=== PATIENT | female | born 2000 | race Caucasian/White ===

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

== ENCOUNTER 2022-09-16 03:03 | Emergency (ER) | payer OTHER ==
[2022-09-16 03:11] VITALS: BP 136/81; PULSE 68; RESP 16; TEMP 97.8
[2022-09-16] MEDS ORDERED: KETOROLAC 15 MG/ML 1 ML VIAL IVP STA (03:14)
[2022-09-16] MEDS ORDERED: ONDANSETRON 4 MG/2 ML VIAL IVP STA (03:14)
--- NOTE | 2022-09-16 03:15 | ED ---
Chest Pain HPI - General Chief Complaint: Chest Pain Stated Complaint: Chest Pain Time Seen by Provider: 09/16/22 03:09 Source: patient, RN notes reviewed Mode of arrival: EMS Limitations: no limitations - History of Present Illness Initial Comments: This is a 22-year-old female who presents to the emergency department for chest pain. Patient states that over the last week, she has had a cough and has overall felt unwell. Over the last 2 days she has had increasing chest pain with shortness of breath. Around midnight, the chest pain started to increase, prompting her to call EMS. Describes the pain as being in the entire chest and feeling heavy. Reports a family cardiac history, but is unsure what it is. Denies any personal cardiac history. She has minor associated nausea. Denies any history of similar symptoms in the past. Denies any fevers, chills, sore throat, cough, palpitations, abdominal pain, vomiting, diarrhea, back pain, or headaches. MD Complaint: chest pain Onset/Timin -: days(s) Pain Location: substernal Pain Radiation: none Quality: tightness - Related Data Home Medications Medication Instructions Recorded Confirmed Multivitamin [Multivitamins Adult 1 tab PO DAILY 03/26/18 03/26/18 Gummies] Omeprazole [PriLOSEC] 20 mg PO QAM 03/26/18 03/26/18 Previous Rx's Medication Instructions Recorded Cephalexin [Keflex] 500 mg PO Q6HR #28 cap 05/26/18 Fluconazole [Diflucan] 150 mg PO ONCE #3 tab 05/26/18 Mupirocin 2% Oint [Bactroban 2% 1 applic TOPICAL TID #60 gm 05/26/18 Oint] Nystatin 100,000 Unit/gm Powd 1 applic TOPICAL BID #60 gm 05/26/18 [Mycostatin Powder] Ondansetron [Zofran ODT] 4 mg PO Q8HR PRN #10 tab 05/07/19 Albuterol Sulfate [Albuterol 1 puff PO Q4-6H PRN #8.5 gm 09/16/22 Sulfate Hfa] dexAMETHasone [Decadron] 6 mg PO DAILY 4 Days #4 tablet 09/16/22 Allergies Allergy/AdvReac Type Severity Reaction Status Date / Time bee pollen Allergy Rash/Hives Verified 12/18/19 13:23 cetirizine [From Zyrtec] Allergy Rash/Hives Verified 12/18/19 13:23 cucumber Allergy Rash/Hives Verified 12/18/19 13:23 fluticasone [From Flonase] Allergy Rash/Hives Verified 12/18/19 13:23 lemon eucalyptus Allergy Rash/Hives Verified 12/18/19 13:23 [From Mosquito Eliminator] Review of Systems ROS Statement: Those systems with pertinent positive or pertinent negative responses have been documented in the HPI. ROS Other: All systems not noted in ROS Statement are negative. Past Medical History Past Medical History: No Reported History Additional Past Medical History / Comment(s): IBS, Chrons dx. CSID History of Any Multi-Drug Resistant Organisms: None Reported Past Surgical History: Cholecystectomy Past Psychological History: Anxiety Smoking Status: Never smoker Past Alcohol Use History: None Reported Past Drug Use History: None Reported General Exam Limitations: no limitations General appearance: alert, in no apparent distress Head exam: Present: atraumatic, normocephalic, normal inspection Respiratory exam: Present: normal lung sounds bilaterally, chest wall tenderness. Absent: respiratory distress, wheezes, rales, rhonchi, stridor Cardiovascular Exam: Present: regular rate, normal rhythm, normal heart sounds. Absent: systolic murmur, diastolic murmur, rubs, gallop, clicks Neurological exam: Present: alert, oriented X3, CN II-XII intact Psychiatric exam: Present: normal affect, normal mood Skin exam: Present: warm, dry, intact, normal color. Absent: rash Course Vital Signs 09/16/22 03:05 Temperature 97.8 F Pulse Rate 68 Respiratory 16 Rate Blood Pressure 136/81 O2 Sat by Pulse 99 Oximetry Chest Pain MDM - MDM This is a 22-year-old female who presents to the emergency department for chest pain and shortness of breath. Was pt. sent in by a medical professional or institution? @ -No Did you speak to anyone other than the patient for history? @ -EMS Did you review nursing and triage notes? @ -Yes, and I agree, it is accurate with regards to the patient's symptoms. Were old charts reviewed? @ -No Differential Diagnosis? @ -Differential Chest Pain: Stable Angina, Unstable Angina, STEMI, NSTEMI Aortic Dissection, Pneumothorax, Musculoskeletal, Esophageal Spasm GERD, Cholecystitis, Pancreatitis, Zoster, this is not meant to be an all-inclusive list. -Differential Dyspnea: Coronary syndrome, arrhythmia, tamponade, asthma, COPD, pulmonary embolism, pneumonia, pneumothorax, pulmonary effusion, anaphylaxis, diabetic ketoacidosis, flailed chest, pulmonary contusion, diaphragmatic rupture, anemia, neuromuscular, this is not meant to be an all-inclusive list. EKG interpreted by me (3pts min.)? @ -Sinus rhythm. Ventricular rate 78 beats per minute, MN interval 174 ms, QRS duration 86 ms, QTC 397 ms. X-rays interpreted by me (1pt min.)? @ -Chest x-ray obtained, my interpretation identifies no localized consolidations or infiltrates. What testing was considered but not performed? (CT, X-rays, U/S, labs)? Why? @ -None What meds were considered but not given? Why? @ -None Did you discuss the management of the patient with other professionals? @ -No Did you reconcile home meds? @ -No Was smoking cessation discussed for >3mins.? @ -No Was critical care preformed (if so, how long)? @ -No Were there social determinants of health that impacted care today? How? (Homelessness, low income, unemployed, alcoholism, drug addiction, transportation, low edu. Level, literacy, decrease access to med. care, shelter, rehab)? @ -No Was there de-escalation of care discussed even if they declined? (Discuss DNR or withdrawal of care, Hospice)? @ -No What co-morbidities impacted this encounter? (DM, HTN, Smoking, COPD, CAD, Cancer, CVA, Hep., AIDS, mental health diagnosis, sleep apnea, morbid obesity)? @ -Morbid obesity Was patient admitted / discharged? @ -Discharged. Lab work obtained and found to be nonactionable, including a negative troponin and negative d-dimer. Chest x-ray reveals no acute process. Patient negative for COVID-19. Toradol, IV fluids, and Zofran administered for symptoms, which only offered minor improvement. She was then given a dose of Decadron and Valium. I did offer a breathing treatment, however the patient declined. Low suspicion for ACS. This may be related to pleurisy secondary to COVID-19 infection. Rx for additional 4 day course of Decadron and albuterol inhaler provided with dosing instructions reviewed. She is otherwise advised to get plenty of rest and drink plenty of fluids. Undiagnosed new problem with uncertain prognosis? @ -None Drug Therapy requiring intensive monitoring for toxicity (Heparin, Nitro, Insulin, Cardizem)? @ -None Were any procedures done? @ -None Diagnosis/symptom? @ -COVID-19, Atypical chest pain Acute, or Chronic, or Acute on Chronic? @ -Acute Uncomplicated (without systemic symptoms) or Complicated (systemic symptoms)? @ -Uncomplicated Side effects of treatment? @ -None Exacerbation, Progression, or Severe Exacerbation] @ -Not applicable Poses a threat to life or bodily function? @ -No Return precautions reviewed in depth, the patient is instructed to return to the emergency department with any new, worsening, or concerning symptoms. Patient verbalized understanding. This case was discussed in detail with the attending ED physician, Dr. Magaña. Presentation, findings, and treatment plan discussed in detail as well. Disposition Clinical Impression: Chest pain, COVID-19 Disposition: HOME SELF-CARE Instructions (If sedation given, give patient instructions): Chest Pain (ED), COVID-19 (Coronavirus Disease 2019) (ED), How to Recover from COVID-19 at Home (ED) Additional Instructions: Return to the emergency department with any new, worsening, or concerning symptoms. Take the Decadron daily for the next 4 days. You can use the albuterol inhaler every 4-6 hours as needed for shortness of breath. Follow up with your primary care provider in 1-2 days. Prescriptions: Albuterol Sulfate [Albuterol Sulfate Hfa] 1 puff PO Q4-6H PRN #8.5 gm PRN Reason: Shortness Of Breath dexAMETHasone [Decadron] 6 mg PO DAILY 4 Days #4 tablet Is patient prescribed a controlled substance at d/c from ED?: No Referrals: Perfecto Nolasco MD [STAFF PHYSICIAN] - 1-2 days
[2022-09-16 03:31] LABS: Basophils % (A) 0 %; Eosinophils # (A) 0.4 k/uL (0-0.7); Eosinophils % (A) 5 %; HCT 37.3 % (34.0-46.0); HGB 12.5 gm/dL (11.4-16.0); Lymphocytes # (A) 2.5 k/uL (1.0-4.8); Lymphocytes % (A) 32 %; MCH 28.4 pg (25.0-35.0); MCHC 33.5 g/dL (31.0-37.0); MCV 84.6 fL (80.0-100.0); Mean Platelet Volume 7.2; Monocytes # (A) 0.4 k/uL (0-1.0); Monocytes % (A) 5 %; Neutrophils # (A) 4.3 k/uL (1.3-7.7); Neutrophils % (A) 55 %; Platelet Count 385 k/uL (150-450); RBC 4.41 m/uL (3.80-5.40); RDW 13.3 % (11.5-15.5); WBC 7.8 k/uL (4.0-11.0)
[2022-09-16 03:47] LABS: ALT 26 U/L (4-34); AST 22 U/L (14-36); African American GFR (CKD) >90 (>60 ml/min/1.73 sqM); Alkaline Phosphatase 85 U/L (38-126); Anion Gap 8 mmol/L; Blood Urea Nitrogen 10 mg/dL (7-17); Calcium 8.8 mg/dL (8.4-10.2); Carbon Dioxide 21 mmol/L (22-30); Chloride 108 mmol/L (98-107); Glucose 99 mg/dL (74-99); Non-African American GFR(CKD) >90 (>60 ml/min/1.73 sqM); Potassium 4.2 mmol/L (3.5-5.1); Sodium 137 mmol/L (137-145); Total Bilirubin 0.2 mg/dL (0.2-1.3); Total Protein 6.6 g/dL (6.3-8.2)
[2022-09-16 03:49] LABS: INR 0.9 (<1.2); Partial Thromboplastin Time 23.3 sec (22.0-30.0); Prothrombin Time 9.9 sec (9.0-12.0)
[2022-09-16 03:49] LABS: Appearance,Urine Clear (Clear); Bilirubin,Urine Negative (Negative); Blood,Urine Negative (Negative); Color,Urine Yellow; Glucose,Urine (UA) Negative (Negative); Ketones,Urine Negative (Negative); Leukocyte Esterase,Urine Negative (Negative); Nitrite,Urine Negative (Negative); Protein,Urine Negative (Negative); Specific Gravity,Urine 1.024 (1.001-1.035); Urobilinogen,Urine <2.0 mg/dL (<2.0)
--- NOTE | 2022-09-16 04:04 | XR ---
EXAMINATION TYPE: XR chest 2V DATE OF EXAM: 09/16/2022 COMPARISON: NONE HISTORY: Cough TECHNIQUE: 2 view FINDINGS: Heart and mediastinum are normal. Lungs are clear. Diaphragm is normal. Bony thorax is norm al. There are chest leads IMPRESSION: Normal chest.
[2022-09-16] MEDS ORDERED: DEXAMETHASONE SOD PHOSPHATE 10 MG/ML 1 ML VIAL IVP STA (04:11)
== END 2022-09-16 05:25 | disposition home or self-care (01) ==
LOC: EC 03:03
DX: U07.1 COVID-19 (principal); F41.9 Anxiety disorder, unspecified; Z91.030 Bee allergy status; Z91.018 Allergy to other foods; Z88.8 Allergy status to other drugs, medicaments and biological substances
CPT/HCPCS: 36415; 93005; 85379; 80053; 83735; 84484; 85025; 85610; 85730; 81003; 87636; 71046; 99285; 96374; 96375 ×3; J1100; J3360; J2405; J1885

== ENCOUNTER 2022-11-05 20:25 | Emergency (ER) | payer OTHER ==
[2022-11-05 21:12] VITALS: TEMP 98.1
--- NOTE | 2022-11-05 22:03 | ED ---
General Adult HPI - General Chief complaint: Neck Pain/Injury Stated complaint: RT SHOULDER PAIN Time Seen by Provider: 11/05/22 21:48 Source: patient, RN notes reviewed Mode of arrival: ambulatory Limitations: no limitations - History of Present Illness Initial comments: 22-year-old female presents to the emergency department with chief complaint of right shoulder pain. She states that it started about a week ago and has progressively gotten worse. She states she has not taken anything at home for pain. The pain is worse with overhead motions. She states it feels like a pulling pain. Denies recent injury. Denies fever, chills. Denies swelling and redness to the area. Denies numbness, tingling. - Related Data Home Medications Medication Instructions Recorded Confirmed Multivitamin [Multivitamins Adult 1 tab PO DAILY 03/26/18 03/26/18 Gummies] Omeprazole [PriLOSEC] 20 mg PO QAM 03/26/18 03/26/18 Previous Rx's Medication Instructions Recorded Cephalexin [Keflex] 500 mg PO Q6HR #28 cap 05/26/18 Fluconazole [Diflucan] 150 mg PO ONCE #3 tab 05/26/18 Mupirocin 2% Oint [Bactroban 2% 1 applic TOPICAL TID #60 gm 05/26/18 Oint] Nystatin 100,000 Unit/gm Powd 1 applic TOPICAL BID #60 gm 05/26/18 [Mycostatin Powder] Ondansetron [Zofran ODT] 4 mg PO Q8HR PRN #10 tab 05/07/19 Albuterol Sulfate [Albuterol 1 puff PO Q4-6H PRN #8.5 gm 09/16/22 Sulfate Hfa] dexAMETHasone [Decadron] 6 mg PO DAILY 4 Days #4 tablet 09/16/22 Cyclobenzaprine [Flexeril] 5 mg PO TID PRN #15 tablet 11/05/22 Allergies Allergy/AdvReac Type Severity Reaction Status Date / Time bee pollen Allergy Rash/Hives Verified 11/05/22 21:10 cetirizine [From Zyrtec] Allergy Rash/Hives Verified 11/05/22 21:10 cucumber Allergy Rash/Hives Verified 11/05/22 21:10 fluticasone [From Flonase] Allergy Rash/Hives Verified 11/05/22 21:10 lemon eucalyptus Allergy Rash/Hives Verified 11/05/22 21:10 [From Mosquito Eliminator] Penicillins Allergy Unknown Verified 11/05/22 21:10 Review of Systems ROS Statement: Those systems with pertinent positive or pertinent negative responses have been documented in the HPI. ROS Other: All systems not noted in ROS Statement are negative. Past Medical History Past Medical History: No Reported History Additional Past Medical History / Comment(s): IBS, Chrons dx. CSID History of Any Multi-Drug Resistant Organisms: None Reported Past Surgical History: Cholecystectomy Past Psychological History: Anxiety Smoking Status: Never smoker Past Alcohol Use History: None Reported Past Drug Use History: None Reported General Exam Limitations: no limitations General appearance: alert, in no apparent distress Head exam: Present: atraumatic, normocephalic, normal inspection Eye exam: Present: normal appearance ENT exam: Present: normal exam Neck exam: Present: normal inspection Respiratory exam: Present: normal lung sounds bilaterally. Absent: respiratory distress, wheezes, rales, rhonchi, stridor Cardiovascular Exam: Present: normal rhythm, tachycardia Extremities exam: Present: tenderness (TTP over the right shoulder), normal capillary refill, other (radial pulses 2+, ). Absent: full ROM (mild decrease rom of right shoulder, passive rom intact) Back exam: Present: normal inspection Neurological exam: Present: alert, oriented X3 Psychiatric exam: Present: normal affect, normal mood Skin exam: Present: warm, dry, intact, normal color. Absent: rash Course Vital Signs 11/05/22 21:10 Temperature 98.1 F Pulse Rate 109 H Respiratory 18 Rate Blood Pressure 150/90 O2 Sat by Pulse 98 Oximetry Medical Decision Making - Medical Decision Making Was pt. sent in by a medical professional or institution (, PA, COSTUME DESIGNER, urgent care, hospital, or snf...) When possible be specific @ -No Did you speak to anyone other than the patient for history (EMS, parent, family, police, friend...)? What history was obtained from this source @ -No Did you review nursing and triage notes (agree or disagree)? Why? @ -I reviewed and agree with nursing and triage notes Were old charts reviewed (outside hosp., previous admission, EMS record, old EKG, old radiological studies, urgent care reports/EKG's, snf records)? Report findings @ -No old charts were reviewed Differential Diagnosis (chest pain, altered mental status, abdominal pain women, abdominal pain men, vaginal bleeding, weakness, fever, dyspnea, syncope, headache, dizziness, GI bleed, back pain, seizure, CVA, palpatations, mental health, musculoskeletal)? @ -Differential Musculoskeletal Muscular strain, contusion, ligament sprain, fracture, arthritis, septic arthritis, bursitis, cellulitis, muscle spasm, nerve compression, DVT, arterial occlusion, herpes zoster, electrolyte abnormality, tumor.... This is not meant to be in all inclusive list EKG interpreted by me (3pts min.). @ -None X-rays interpreted by me (1pt min.). @ -XR of right shoulder interpreted by me showed no acute fracture or dislocation CT interpreted by me (1pt min.). @ -None done U/S interpreted by me (1pt. min.). @ -None done What testing was considered but not performed or refused? (CT, X-rays, U/S, labs)? Why? @ -None What meds were considered but not given or refused? Why? @ -Pain medication was considered but patient did not want anything at this time. Did you discuss the management of the patient with other professionals (professionals i.e. , PA, COSTUME DESIGNER, lab, RT, psych nurse, social work job titles, intellectual property lawyer, teacher, landcare officer, case technician)? Give summary @ -No Was smoking cessation discussed for >3mins.? @ -No Was critical care preformed (if so, how long)? @ -No Were there social determinants of health that impacted care today? How? (Homelessness, low income, unemployed, alcoholism, drug addiction, transportation, low edu. Level, literacy, decrease access to med. care, longterm, rehab)? @ -No Was there de-escalation of care discussed even if they declined (Discuss DNR or withdrawal of care, Hospice)? DNR status @ -No What co-morbidities impacted this encounter? (DM, HTN, Smoking, COPD, CAD, Cancer, CVA, ARF, Chemo, Hep., AIDS, mental health diagnosis, sleep apnea, morbid obesity)? @ -None Was patient admitted / discharged? Hospital course, mention meds given and route, prescriptions, significant lab abnormalities, going to OR and other pertinent info. @ -Discharged. Patient presented to the emergency department with right shoulder pain x7 days. Patient states that it is progressively getting worse. She has not taken anything at home for pain. XR right shoulder showed Patient did not want pain medication in the emergency department. Prescription sent for Flexeril 3 days. Patient advised not to operate heavy machinery, drive while on the medication. Patient advised to also alternate Tylenol and Motrin as needed for pain. Patient discharged in stable condition. Case discussed with my attending, Dr. Hammonds. Undiagnosed new problem with uncertain prognosis? @ -No Drug Therapy requiring intensive monitoring for toxicity (Heparin, Nitro, Insulin, Cardizem)? @ -No Were any procedures done? @ -No Diagnosis/symptom? @ -trapezius strain Acute, or Chronic, or Acute on Chronic? @ -acute Uncomplicated (without systemic symptoms) or Complicated (systemic symptoms)? @ -uncomplicated Side effects of treatment? @ -No Exacerbation, Progression, or Severe Exacerbation? @ -No Poses a threat to life or bodily function? How? (Chest pain, [place], [place], pneumonia, PE, COPD, DKA, ARF, appy, cholecystitis, CVA, Diverticulitis, Homicidal, Suicidal, threat to staff... and all critical care pts) @ -No Disposition Clinical Impression: Trapezius muscle strain Disposition: HOME SELF-CARE Condition: Stable Instructions (If sedation given, give patient instructions): Muscle Strain (ED) Additional Instructions: Please return to the Emergency Department if symptoms worsen or any other concerns. Prescriptions: Cyclobenzaprine [Flexeril] 5 mg PO TID PRN #15 tablet PRN Reason: Muscle Spasm Is patient prescribed a controlled substance at d/c from ED?: No Referrals: None,Stated [Primary Care Provider] - 1-2 days Time of Disposition: 22:47
--- NOTE | 2022-11-05 22:34 | XR ---
EXAMINATION TYPE: XR shoulder complete RT DATE OF EXAM: 11/05/2022 CLINICAL HISTORY: Neck pain into right shoulder. TECHNIQUE: Three views of the right shoulder are obtained. COMPARISON: None. FINDINGS: There is no acute fracture/dislocation evident in the right shoulder. The acromioclavicul ar and glenohumeral joint spaces appear within normal limits. The visualized ribs are intact and unr emarkable. IMPRESSION: As above.
[2022-11-05 23:38] VITALS: BP 132/68; PULSE 89; RESP 16
== END 2022-11-05 23:00 | disposition home or self-care (01) ==
LOC: EC 20:25
DX: S29.012A Strain of muscle and tendon of back wall of thorax, initial encounter (principal); F41.9 Anxiety disorder, unspecified; Z91.030 Bee allergy status; Z91.018 Allergy to other foods; Z88.0 Allergy status to penicillin; Z91.048 Other nonmedicinal substance allergy status; Z79.899 Other long term (current) drug therapy; X58.XXXA Exposure to other specified factors, initial encounter
CPT/HCPCS: 99283

== ENCOUNTER → 2024-05-12 | Outpatient (CLI) | payer OTHER ==
--- NOTE | 2024-05-12 08:44 | US ---
EXAMINATION TYPE: US abdomen complete DATE OF EXAM: 05/12/2024 COMPARISON: 12/18/19 CLINICAL INDICATION: Female, 23 years old with history of R10.13 EPI PAIN; Generalized abdominal pain x a couple months TECHNIQUE: Grayscale and color Doppler imaging of the abdomen was performed. FINDINGS: EXAM MEASUREMENTS: Liver Length: 15.4 cm Gallbladder Wall: 0.22 cm CBD: 0.29 cm, color Doppler imaging was utilized to isolate the common bile duct for measurement. Spleen: 10.2 cm Right Kidney: 9.4 x 6.5 x 4.2 cm Left Kidney: 10.7 x 6.0 x 5.2 cm MOBILE APPLICATION TESTER NOTES: Slightly limited due to body habitus Pancreas: wnl Liver: heterogeneous. Hypoechoic area seen adjacent to GB measuring 3.5 x 3.2 x 1.4cm Gallbladder: wnl Evidence for sonographic Zelaya's sign: No CBD: wnl Spleen: wnl Right Kidney: wnl Left Kidney: wnl Upper IVC: obscured by bowel gas Abd Aorta: parts seen appear wnl The liver is homogenous in echotexture with relative sparing of the gallbladder fossa. The intrahepa tic portion of the IVC and proximal abdominal aorta are within normal limits. There is no evidence o f cholelithiasis. Common bile duct is unremarkable. The visualized portions of the pancreas are frankie ogenous. The spleen is unremarkable. Kidneys are symmetric and free of hydronephrosis. No renal le sions are seen. IMPRESSION: 1. Hepatic steatosis with focal fatty sparing. 2. No evidence for acute process. [facility], , 05/12/2024 8:42 AM
== END | disposition home or self-care (01) ==
LOC: RADUSWWP 08:02
PROVIDERS: ATTEND Family Medicine
DX: K76.0 Fatty (change of) liver, not elsewhere classified (principal); R10.13 Epigastric pain
CPT/HCPCS: 76700

== ENCOUNTER 2024-06-12 21:13 | Emergency (ER) | payer OTHER ==
[2024-06-12 21:20] VITALS: RESP 18; TEMP 98.3
--- NOTE | 2024-06-12 21:21 | ED ---
ENT HPI - General Chief complaint: ENT Stated complaint: Left ear swelling Time Seen by Provider: 06/12/24 21:20 Source: patient, RN notes reviewed Mode of arrival: ambulatory - History of Present Illness Initial comments: This is a 23-year-old female presenting to the emergency department chief complaint of left ear pain. She states that over the past week she has had worsening left ear pain over the past few days she has had decrease in hearing acuity of the left ear. She is evaluated yesterday at urgent care where she was prescribed antibiotic drops. States that today the pain continued to worsen however, states that she has not attempted take any medications to alleviate her symptoms. She denies discharge from the ear, mastoid tenderness, fevers, chills, cough, rhinorrhea, congestion. No other acute complaints at this time. - Related Data Home Medications Medication Instructions Recorded Confirmed Multivitamin [Multivitamins Adult 1 tab PO DAILY 03/26/18 03/26/18 Gummies] Omeprazole [PriLOSEC] 20 mg PO QAM 03/26/18 03/26/18 Previous Rx's Medication Instructions Recorded Cephalexin [Keflex] 500 mg PO Q6HR #28 cap 05/26/18 Fluconazole [Diflucan] 150 mg PO ONCE #3 tab 05/26/18 Mupirocin 2% Oint [Bactroban 2% 1 applic TOPICAL TID #60 gm 05/26/18 Oint] Nystatin 100,000 Unit/gm Powd 1 applic TOPICAL BID #60 gm 05/26/18 [Mycostatin Powder] Ondansetron [Zofran ODT] 4 mg PO Q8HR PRN #10 tab 05/07/19 Albuterol Sulfate [Albuterol 1 puff PO Q4-6H PRN #8.5 gm 09/16/22 Sulfate Hfa] dexAMETHasone [Decadron] 6 mg PO DAILY 4 Days #4 tablet 09/16/22 Cyclobenzaprine [Flexeril] 5 mg PO TID PRN #15 tablet 11/05/22 Ibuprofen [Motrin] 800 mg PO Q6HR #30 tab 06/12/24 Allergies Allergy/AdvReac Type Severity Reaction Status Date / Time bee pollen Allergy Rash/Hives Verified 11/05/22 21:10 cetirizine [From Zyrtec] Allergy Rash/Hives Verified 11/05/22 21:10 cucumber Allergy Rash/Hives Verified 11/05/22 21:10 fluticasone [From Flonase] Allergy Rash/Hives Verified 11/05/22 21:10 lemon eucalyptus Allergy Rash/Hives Verified 11/05/22 21:10 [From Mosquito Eliminator] Penicillins Allergy Unknown Verified 11/05/22 21:10 Review of Systems ROS Statement: Those systems with pertinent positive or pertinent negative responses have been documented in the HPI. ROS Other: All systems not noted in ROS Statement are negative. Past Medical History Past Medical History: No Reported History Additional Past Medical History / Comment(s): IBS, Chrons dx. CSID History of Any Multi-Drug Resistant Organisms: None Reported Past Surgical History: Cholecystectomy Past Psychological History: Anxiety Smoking Status: Never smoker Past Alcohol Use History: None Reported Past Drug Use History: None Reported General Exam General appearance: alert, in no apparent distress Expanded TM/Canal exam: Perforation: Left TM (partial ), Canal Tenderness: Left TM Neck exam: Present: normal inspection. Absent: tenderness, meningismus, lymphadenopathy Respiratory exam: Present: normal lung sounds bilaterally. Absent: respiratory distress, wheezes, rales, rhonchi, stridor Cardiovascular Exam: Present: regular rate, normal rhythm, normal heart sounds. Absent: systolic murmur, diastolic murmur, rubs, gallop, clicks GI/Abdominal exam: Present: soft, normal bowel sounds. Absent: distended, tenderness, guarding, rebound, rigid Skin exam: Present: warm, dry, intact, normal color. Absent: rash Course Vital Signs 06/12/24 21:16 Temperature 98.3 F Pulse Rate 122 H Respiratory 18 Rate Blood Pressure 146/94 O2 Sat by Pulse 99 Oximetry Medical Decision Making - Medical Decision Making Was pt. sent in by a medical professional or institution (, PA, ROLL RECLAIMER, urgent care, hospital, or long-term...) When possible be specific @ -No Did you speak to anyone other than the patient for history (EMS, parent, family, police, friend...)? What history was obtained from this source @ -No Did you review nursing and triage notes (agree or disagree)? Why? @ -I reviewed and agree with nursing and triage notes Were old charts reviewed (outside hosp., previous admission, EMS record, old EKG, old radiological studies, urgent care reports/EKG's, long-term records)? Report findings @ -No old charts were reviewed Differential Diagnosis (chest pain, altered mental status, abdominal pain women, abdominal pain men, vaginal bleeding, weakness, fever, dyspnea, syncope, headache, dizziness, GI bleed, back pain, seizure, CVA, palpatations, mental health, musculoskeletal)? @ -Otitis media, otitis externa, mastoiditis, this list is not all inclusive EKG interpreted by me (3pts min.). @ -None X-rays interpreted by me (1pt min.). @ -None done CT interpreted by me (1pt min.). @ -None done U/S interpreted by me (1pt. min.). @ -None done What testing was considered but not performed or refused? (CT, X-rays, U/S, labs)? Why? @ -None What meds were considered but not given or refused? Why? @ -None Did you discuss the management of the patient with other professionals (professionals i.e. , PA, ROLL RECLAIMER, lab, RT, psych nurse, social work program coordinator, employment adjudicator, teacher, public affairs officer, case resolution specialist)? Give summary @ -No Was smoking cessation discussed for >3mins.? @ -No Was critical care preformed (if so, how long)? @ -No Were there social determinants of health that impacted care today? How? (Homelessness, low income, unemployed, alcoholism, drug addiction, transportation, low edu. Level, literacy, decrease access to med. care, fci, rehab)? @ -No Was there de-escalation of care discussed even if they declined (Discuss DNR or withdrawal of care, Hospice)? DNR status @ -No What co-morbidities impacted this encounter? (DM, HTN, Smoking, COPD, CAD, Cancer, CVA, ARF, Chemo, Hep., AIDS, mental health diagnosis, sleep apnea, morbid obesity)? @ -None Was patient admitted / discharged? Hospital course, mention meds given and route, prescriptions, significant lab abnormalities, going to OR and other pertinent info. @ -Discharge. 23-year-old female presenting with left ear pain. On physical examination is noted to have partial perforation of the left TM. There is no mastoid tenderness. No erythema of the mastoid. No canal drainage. Patient is provided with antibiotic drops and dose of ibuprofen. Recommend patient continue antibiotic drops 5 drops in the left ear 2 times a day for 7 days of follow-up with primary care provider for resolution. Discussed with Dr. Smith Undiagnosed new problem with uncertain prognosis? @ -No Drug Therapy requiring intensive monitoring for toxicity (Heparin, Nitro, Insulin, Cardizem)? @ -No Were any procedures done? @ -No Diagnosis/symptom? @ -partial perforation of TM Acute, or Chronic, or Acute on Chronic? @ -acute Uncomplicated (without systemic symptoms) or Complicated (systemic symptoms)? @ -uncomplicated Side effects of treatment? @ -No Exacerbation, Progression, or Severe Exacerbation? @ -No Poses a threat to life or bodily function? How? (Chest pain, [place], [place], pneumonia, PE, COPD, DKA, ARF, appy, cholecystitis, CVA, Diverticulitis, Homicidal, Suicidal, threat to staff... and all critical care pts) @ -No Disposition Clinical Impression: Perforation of tympanic membrane Disposition: HOME SELF-CARE Condition: Good Instructions (If sedation given, give patient instructions): Ruptured Eardrum (ED) Additional Instructions: Please return to the Emergency Department if symptoms worsen or any other concerns. continue to use antibiotic drops in the left ear; 5 drops 2 times a day for 7 days. Do not go swimming over the next 4 weeks and keep water out of your middle ear. Recommend they follow-up with primary care provider in 4 to 6 weeks for reevaluation. Take Tylenol and Motrin as needed for pain Is patient prescribed a controlled substance at d/c from ED?: No Referrals: German Tian MD [Primary Care Provider] - 1-2 days Time of Disposition: 21:33
[2024-06-12] MEDS: IBUPROFEN 800 MG TAB PO STA (21:35)
[2024-06-12] MEDS: OFLOXACIN 0.3% OPHTH DROPS 5 ML BOTTLE LEFT EAR STA (21:58)
[2024-06-12 22:01] VITALS: BP 139/77; PULSE 101
== END 2024-06-12 22:00 | disposition home or self-care (01) ==
LOC: EC 21:13
DX: H72.02 Central perforation of tympanic membrane, left ear (principal); Z88.0 Allergy status to penicillin; Z88.8 Allergy status to other drugs, medicaments and biological substances; Z91.030 Bee allergy status
CPT/HCPCS: 99283